=== PATIENT | female | born 1945 | race Caucasian/White ===

== ENCOUNTER 2020-04-27 14:19 | Outpatient (REF) | payer MEDICARE, SELFPAY ==
[2020-04-27 15:42] LABS: Anion Gap 13 (12-20); Blood Urea Nitrogen 9 mg/dL (9-16); Calcium 9.1 mg/dL (8.4-10.2); Carbon Dioxide 29 mmol/L (22-29); Chloride 103 mmol/L (96-108); Estimated Glomerular Filt Rate > 60; Glucose Random 92 mg/dL (60-115); Potassium 4.1 mmol/l (3.3-5.1); Sodium 141 mmol/L (135-145)
[2020-04-29 12:07] LABS: Lyme Abs Screen <0.90 index
[2020-04-30 15:38] LABS: IgA 221 mg/dL (70-320); IgG 1053 mg/dL (600-1540); IgM 38 mg/dL (50-300)
== END 2020-04-27 14:20 | disposition home or self-care (01) ==
LOC: HO.LAB 14:19
PROVIDERS: PCP Internal Medicine; Visit Provider Psychiatry & Neurology Neurology
DX: G62.9 Polyneuropathy, unspecified (principal)
CPT/HCPCS: 36415; 80048; 82784; 86334; 86618

== ENCOUNTER 2020-05-17 13:40 | Outpatient (REF) | payer MEDICARE, SELFPAY | END 2020-05-17 13:41 | disposition home or self-care (01) | LOC: HO.LAB 13:40 | PROVIDERS: PCP Internal Medicine; Visit Provider Psychiatry & Neurology Neurology | DX: Z13.89 Encounter for screening for other disorder (principal) ==

== ENCOUNTER 2020-05-24 09:49 | Outpatient (REF) | payer MEDICARE, SELFPAY ==
[2020-05-27 00:32] LABS: Arsenic, 24H Urine <10 mcg/L (<=80); Cadmium, 24H Urine <0.5 mcg/L (<=5.0); Lead, 24H Urine <10 mcg/L (<80); Mercury, 24H Urine <4 mcg/L (<=20)
== END 2020-05-24 09:50 | disposition home or self-care (01) ==
LOC: HO.LNP 09:49
PROVIDERS: Visit Provider Psychiatry & Neurology Neurology
DX: G62.9 Polyneuropathy, unspecified (principal)
CPT/HCPCS: 82175; 82300; 83655; 83825

== ENCOUNTER → 2021-03-02 13:09 | Outpatient (BNVA) | payer MEDICARE, SELFPAY | PROVIDERS: PCP Internal Medicine; Visit Provider Internal Medicine Cardiovascular Disease | DX: R00.2 Palpitations (principal); I10 Essential (primary) hypertension | CPT/HCPCS: 93005; 99212 ==

== ENCOUNTER → 2022-03-08 12:44 | Outpatient (BNVA) | payer MEDICARE, SELFPAY | PROVIDERS: PCP Internal Medicine; Visit Provider Internal Medicine Cardiovascular Disease | DX: R00.2 Palpitations (principal); I10 Essential (primary) hypertension | CPT/HCPCS: 93005; 99212 ==

== ENCOUNTER → 2022-03-20 11:00 | Outpatient (REF) | payer MEDICARE, SELFPAY ==
--- NOTE | 2022-03-20 11:04 | HM_ITS ---
Cardiac event monitor Indication: Palpitations Technique: Patient was worked up to cardiac event monitor for a total period of 28.5 days. Patient had good compliance of 95%. Procedures start date was 03/20/2022 Findings: Baseline was normal sinus rhythm with heart rate within normal range 95% of the time. Three episodes of fast heart rate noted 2 of them were incidental finding consistent with SVT at 120 beats per minute. Patient reported 1 symptom of fluttering which correlated with sinus rhythm. Patient reported 1 symptom of anxiety which correlated with 8 beat run of what appears to be SVT with aberrant conduction at 123 beats per minute Patient reported other events without any associated symptoms which correlated with normal sinus rhythm Rare isolated PACs and PVCs noted Conclusion: 1. Baseline was normal sinus rhythm 2. No significant pauses noted 3. One of the patient reported symptoms of fluttering/skipped heartbeats correlated with sinus rhythm 4. Patient reported symptoms of anxiety correlate with 8 beat run of what appears to be SVT with aberrancy at 123 beats per minute MTDD
== END ==
LOC: HO.CARD 11:00
PROVIDERS: PCP Internal Medicine; Visit Provider Internal Medicine Cardiovascular Disease
DX: R00.2 Palpitations (principal)
CPT/HCPCS: 93270

== ENCOUNTER 2022-10-30 14:09 | Outpatient (REF) | payer MEDICARE, SELFPAY | END 2022-10-30 14:10 | disposition home or self-care (01) | LOC: CF 14:09 | PROVIDERS: PCP Internal Medicine; Visit Provider Internal Medicine Cardiovascular Disease | DX: R00.2 Palpitations (principal); I10 Essential (primary) hypertension; E78.5 Hyperlipidemia, unspecified; Z79.899 Other long term (current) drug therapy | CPT/HCPCS: 36415; 80048; 84443; 85027; 99212 ==

== ENCOUNTER 2022-10-30 14:09 | Outpatient (AMB) | payer MEDICARE, SELFPAY ==
[2022-10-30 14:24] VITALS: BP 130/66; PULSE 76; O2SAT 98; BMI 20.4
--- NOTE | 2022-10-30 14:24 | MHC.OFFVIS ---
Intake Vital Signs 10/30/22 14:24 Height 5 ft 1 in Weight 108 lb BMI 20.4 BP 130/66 Blood Pressure Location Lt brachial Position Sitting Pulse 76 Pulse Source Pulse Oximeter Pulse Oximetry (%) 98 Oxygen Delivery Method Room Air Intake Visit Reasons: palpitations Intake Note: pt states she wasn't due to follow up until s/p wearing a heart monitor last March that came back normal. States irregular heartbeat has been noted more frequently and has been much more noticeable and wanted to get checked before routine appt Accompanied by: Self / Same As Patient Allergies latex [LATEX] Allergy (Unknown, Unverified 10/30/22 14:30) UNKNOWN epinephrine [EPINEPHRINE] Adverse Reaction (Mild, Unverified 10/30/22 14:30) SENSITIVTY epienphrine Allergy (Unknown, Uncoded 10/30/22 14:30) tachycardia Medication List - Last Reconciled 10/30/22 by Loi Fallon MD alendronate 35 mg PO QWEEK atenolol 50 mg PO DAILY cholecalciferol (vitamin D3) 25 mcg PO DAILY conjugated estrogens 0.625 mg vaginal DAILY gabapentin 300 mg PO BEDTIME multivitamin 1 tab PO DAILY omeprazole 20 mg PO DAILY PRN simvastatin 20 mg PO BEDTIME HPI HPI Comments History of Present Illness Details 77-year-old female here for follow-up. She had background history of hypertension and hyperlipidemia. She was seen for palpitations. She returns and is complaining that the palpitations are more frequent. She is getting symptoms once 1-2 weeks. No CP or SOB. 10/30/22: She returns for follow-up. Her previous visit she was complaining of palpitations after discussion she was referred for cardiac event monitor. She underwent cardiac event monitor in April 2022 which showed no significant arrhythmia or pauses. She was in sinus rhythm during 1 of her palpitation episode. She had 8 beat run of supraventricular tachycardia with aberrancy doing another episode no palpitations. No significant arrhythmia otherwise. She has been under stress over the 24 of October weekend and had some folks over. She is saying that she has been experiencing more palpitations in the last week. She feels her heart skips 1 beats and flutters. No chest discomfort shortness of breath. She has not been drinking more coffee or tea. She occasionally eats chocolate. He does not use any energy drinks or soda. [facility] Surgical History H/O section H/O endoscopy History of appendectomy Family History Father Colon cancer Diabetes Heart disease Mother No problems noted. Social History Alcohol intake: current Alcohol intake frequency: holidays/special occasions only Alcohol type: wine Patient Tobacco Use Status: Never used Tobacco Review of Systems Const Denies fatigue, Denies fever(s), Denies frequent falls, Denies weight gain and Denies weight loss ENT Denies dizziness Card Denies chest pain, Denies leg edema, Denies palpitations, Denies dyspnea, Denies dyspnea on exertion, Denies orthopnea and Denies other (loss of consciousness) Resp Denies cough, Denies dyspnea and Denies dyspnea on exertion GI Denies hematochezia and Denies change in stool character Musc Denies abnormal gait, Denies muscle weakness, Denies numbness, Denies radiating pain into limb and Denies tingling Neuro Denies abnormal gait, Denies dizziness, Denies frequent falls, Denies numbness and Denies tingling Endo Denies fatigue and Denies palpitations Physical Exam Vital Signs: Last Vital Signs Pulse 76 10/30/22 14:24 BP 130/66 10/30/22 14:24 Pulse Ox 98 10/30/22 14:24 Oxygen Delivery Method Room Air 10/30/22 14:24 BMI result Body Mass Index 20.4 GENERAL APPEARANCE: in no acute distress, pleasant. NECK: no carotid bruit, no jugular venous distention. SKIN: no suspicious lesions, warm and dry. HEART: no murmurs, regular rate and rhythm. LUNGS: clear to auscultation bilaterally. ABDOMEN: soft, nontender. EXTREMITIES: no edema. PERIPHERAL PULSES: equal. NEUROLOGIC: No gross deficits, AAO X 3 Assessment & Plan Assessment & Plan (1) Essential hypertension: Code(s): I10 - Essential (primary) hypertension (2) Palpitations: Code(s): R00.2 - Palpitations Plan Pleasant 77-year-old female who is here for follow-up. She has background of hypertension. Blood pressure control is good currently with atenolol 50 mg daily. She is complaining of palpitations. She previously complained of palpitations and underwent cardiac event monitor in April 2022 which did not show any significant issues. She had 1 8 beat run of SVT with aberrancy. She is returning and is complaining of significant palpitations happening over the last week. She said she was under stress which could be the underlying problem here to0. We have decided to some basic blood workup including CBC, basic metabolic panel and thyroid profile. If the blood test is normal then I will do 7 day Holter monitor as she appears quite apprehensive. Thank you for allowing me to participate in the care of your patient. Please feel free to contact me if you have any questions. Orders: Orders TSH reflex Free T4 Today R00.2 - Palpitations Complete Blood Count no Diff Today R00.2 - Palpitations Basic Metabolic Panel Today R00.2 - Palpitations Coding Level of Care Code Est Pt Level 4 (73318) Diagnoses Essential hypertension I10 Palpitations R00.2
== END 2022-10-30 15:01 | disposition home or self-care (01) ==
PROVIDERS: PCP Internal Medicine; Visit Provider Internal Medicine Cardiovascular Disease
DX: I10 Essential (primary) hypertension (principal); R00.2 Palpitations
CPT/HCPCS: 99214

== ENCOUNTER 2023-01-24 13:47 | Outpatient (AMB) | payer MEDICARE, SELFPAY ==
--- NOTE | 2023-01-24 13:55 | MHC.OFFVIS ---
Intake Vital Signs 01/24/23 13:57 Height 5 ft 1 in Weight 105 lb 13.15 oz BMI 20.0 BP 108/58 L Pulse 72 Pulse Oximetry (%) 97 Intake Visit Reasons: 2 month follow up Intake Note: 2 mo follow up for irregular heartbeat, pt states she notices less frequently. Accompanied by: Self / Same As Patient Allergies latex [LATEX] Allergy (Unknown, Unverified 01/24/23 13:59) UNKNOWN epinephrine [EPINEPHRINE] Adverse Reaction (Mild, Unverified 01/24/23 13:59) SENSITIVTY epienphrine Allergy (Unknown, Uncoded 01/24/23 13:59) tachycardia Medication List - Last Reconciled 01/24/23 by Loi Fallon MD alendronate 35 mg PO QWEEK atenolol 50 mg PO DAILY cholecalciferol (vitamin D3) 25 mcg PO DAILY conjugated estrogens 0.625 mg vaginal DAILY gabapentin 300 mg PO BEDTIME multivitamin 1 tab PO DAILY omeprazole 20 mg PO DAILY PRN simvastatin 20 mg PO BEDTIME HPI HPI Comments History of Present Illness Details 77-year-old female here for follow-up. She had background history of hypertension and hyperlipidemia. She was seen for palpitations. She returns and is complaining that the palpitations are more frequent. She is getting symptoms once 1-2 weeks. No CP or SOB. 10/30/22: She returns for follow-up. Her previous visit she was complaining of palpitations after discussion she was referred for cardiac event monitor. She underwent cardiac event monitor in April 2022 which showed no significant arrhythmia or pauses. She was in sinus rhythm during 1 of her palpitation episode. She had 8 beat run of supraventricular tachycardia with aberrancy doing another episode no palpitations. No significant arrhythmia otherwise. She has been under stress over the 24 of October weekend and had some folks over. She is saying that she has been experiencing more palpitations in the last week. She feels her heart skips 1 beats and flutters. No chest discomfort shortness of breath. She has not been drinking more coffee or tea. She occasionally eats chocolate. He does not use any energy drinks or soda. 01/24/2023: She had blood workup on last visit which was completely normal. She returns for follow-up today. She is denying any significant palpitations. She is getting rare palpitations at this point and these last only for couple of seconds. She has been more active and has not felt any exertional symptoms. Overall clinically stable. Blood pressure is good. [facility] Surgical History H/O endoscopy H/O section History of appendectomy Family History Father Colon cancer Diabetes Heart disease Mother No problems noted. Social History Alcohol intake: current Alcohol intake frequency: holidays/special occasions only Alcohol type: wine Patient Tobacco Use Status: Never used Tobacco Review of Systems Const Denies chills, Denies fatigue, Denies fever(s), Denies frequent falls, Denies weakness, Denies weight gain and Denies weight loss ENT Denies dizziness Card Denies chest pain, Denies leg edema, Denies lightheadedness, Denies palpitations, Denies dyspnea, Denies dyspnea on exertion, Denies orthopnea and Denies other (loss of consciousness) Resp Denies cough, Denies dyspnea and Denies dyspnea on exertion GI Denies hematochezia and Denies change in stool character Musc Denies abnormal gait, Denies muscle weakness, Denies numbness, Denies radiating pain into limb and Denies tingling Neuro Denies abnormal gait, Denies dizziness, Denies frequent falls, Denies numbness, Denies tingling and Denies weakness Endo Denies fatigue and Denies palpitations Physical Exam Vital Signs: Last Vital Signs Pulse 72 01/24/23 13:57 BP 108/58 L 01/24/23 13:57 Pulse Ox 97 01/24/23 13:57 BMI result Body Mass Index 20.0 GENERAL APPEARANCE: in no acute distress, pleasant. NECK: no carotid bruit, no jugular venous distention. SKIN: no suspicious lesions, warm and dry. HEART: no murmurs, regular rate and rhythm. LUNGS: clear to auscultation bilaterally. ABDOMEN: soft, nontender. EXTREMITIES: no edema. PERIPHERAL PULSES: equal. NEUROLOGIC: No gross deficits, AAO X 3 Assessment & Plan Assessment & Plan (1) Palpitations: Code(s): R00.2 - Palpitations Plan Pleasant 77-year-old female here for follow-up. She has background hypertension and palpitations. Blood pressure control is good on atenolol. She is denying significant palpitations on follow-up. Clinically stable. She will see us back in 6 months. Thank you for allowing me to participate in the care of your patient. Please feel free to contact me if you have any questions. Coding Level of Care Code Est Pt Level 3 (92507) Diagnoses Palpitations R00.2
[2023-01-24 13:57] VITALS: BP 108/58; PULSE 72; O2SAT 97
== END 2023-01-24 14:18 | disposition home or self-care (01) ==
PROVIDERS: PCP Internal Medicine; Visit Provider Internal Medicine Cardiovascular Disease
DX: R00.2 Palpitations (principal)
CPT/HCPCS: 99213

== ENCOUNTER → 2023-01-24 13:47 | Outpatient (BNVA) | payer MEDICARE, SELFPAY | PROVIDERS: PCP Internal Medicine; Visit Provider Internal Medicine Cardiovascular Disease | DX: R00.2 Palpitations (principal); I10 Essential (primary) hypertension; E78.5 Hyperlipidemia, unspecified | CPT/HCPCS: 99212 ==

== ENCOUNTER 2023-07-09 15:03 | Outpatient (AMB) | payer MEDICARE, SELFPAY ==
[2023-07-09 15:08] VITALS: BP 108/72; PULSE 81; BMI 19.9
--- NOTE | 2023-07-09 15:08 | A.OFFVIS_ITS ---
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 Allergies latex [LATEX] Allergy (Unknown, Unverified 07/09/23 15:10) UNKNOWN epinephrine [EPINEPHRINE] Adverse Reaction (Mild, Unverified 07/09/23 15:10) SENSITIVTY epienphrine Allergy (Unknown, Uncoded 07/09/23 15:10) tachycardia Medication List - Last Reconciled 07/09/23 by Tyra Dunn NP-C alendronate 35 mg PO QWEEK atenolol 50 mg PO DAILY cholecalciferol (vitamin D3) 25 mcg PO DAILY conjugated estrogens 0.625 mg vaginal DAILY gabapentin 300 mg PO BEDTIME multivitamin 1 tab PO DAILY simvastatin 20 mg PO BEDTIME HPI 6 mth fu ([facility]) HPI Details Karine is a 78-year-old female with past medical history of hypertension, hyperlipidemia, heart palpitations, brief SVT run seen on cardiac event monitor who presents for follow-up. Today she reports that she will feel very brief heart palpitations when she is at rest at times. She states it only lasts for a second or 2 and goes away. At times it will make her feel like she has to take a deep breath in. No sustained rapid heartbeats. No lightheadedness, presyncope, syncope, falls. No chest discomfort at rest or with activity, no shortness of breath, PND, orthopnea or edema. Taking meds as directed. Reports good activity tolerance. [facility] Surgical History H/O endoscopy H/O section History of appendectomy Family History Father Colon cancer Diabetes Heart disease Mother No problems noted. Social History Alcohol intake: current Alcohol intake frequency: holidays/special occasions only Alcohol type: wine Patient Tobacco Use Status: Never used Tobacco Review of Systems Const All systems reviewed & are unremarkable except as noted in HPI and below ENT Reports dizziness Card Details: brief palpitations Denies chest pain, Denies chest pain at rest, Denies chest pain with activity, Denies rapid heart rate, Denies pedal edema, Denies edema, Denies leg edema, Denies lightheadedness, Denies palpitations, Denies dyspnea, Denies dyspnea on exertion and Denies orthopnea Resp Denies cough, Denies dyspnea and Denies dyspnea on exertion GI Denies hematochezia and Denies change in stool character Musc Denies abnormal gait, Reports limited range of motion, Reports muscle cramps, Denies muscle weakness, Denies numbness, Denies radiating pain into limb, Denies stiffness and Denies tingling Neuro Denies abnormal gait, Reports dizziness, Denies numbness and Denies tingling Endo Denies palpitations Physical Exam Vital Signs: Last Vital Signs Pulse 81 07/09/23 15:08 BP 108/72 07/09/23 15:08 BMI result Body Mass Index 19.9 Const General: cooperative, healthy appearing, comfortable and no acute distress Orientation/consciousness: patient oriented x3 Neck Neck: Yes normal visual inspection and Yes no JVD Resp Effort & Inspection: normal respiratory effort Auscultation: clear to auscultation bilaterally, no crackles, no rales, no rhonchi and no wheezes Cardio Jugular venous distension: no JVD Rate: regular rate Rhythm: regular rhythm Heart sounds: S1 normal heart sound present, S2 normal heart sound present, no murmurs and no rubs Peripheral pulses: Peripheral pulses 2+ throughout Neuro General: patient oriented x3 Extrem General: Yes normal to inspection and No no pedal edema Psych Appearance: grossly normal Mental Status: mental status grossly normal Speech and movement: Normal speech and movement present Office Procedures EKG Details: Today, read by me, normal sinus rhythm, nonspecific ST and T-wave abnormality, rate 81, QTC 432 milliseconds [id number], Complete Assessment & Plan Assessment & Plan (1) Palpitations: Code(s): R00.2 - Palpitations Plan: History of heart palpitations. Last cardiac event monitor done on 03/20/2022 does show an 8 beat run of SVT, rate 123, also rare isolated PACs and PVCs, normal heart rate and rhythm 95% of the time. For her palpitations she could be feeling the extrasystoles as well as the brief SVT runs. She has been on atenolol which helps to control the symptom. She will notice only brief heart palpitations lasting 1-2 seconds. Will keep her atenolol at current dose. Blood pressure is on the low side at 108/72. In the event of sustained rapid heart palpitations reviewed vagal maneuvers. Emergency care if ever needed. Discussed ongoing reduction in caffeinated beverages. Continue with activity as tolerated. (2) SVT (supraventricular tachycardia): Code(s): I47.10 - Supraventricular tachycardia, unspecified Plan: As above (3) Essential hypertension: Code(s): I10 - Essential (primary) hypertension Plan: History of hypertension. Blood pressure currently well controlled. On atenolol 50 mg daily. Will continue without change. Continue physical activity as tolerated, Plan Time spent on chart review, documentation, interview and assessment Coding Level of Care Code Est Pt Level 3 (02199) Diagnoses Palpitations R00.2 SVT (supraventricular tachycardia) I47.10 Essential hypertension I10 CPT Codes EKG - CPT: 29906-[id number], Complete ([id number]) Time Spent (min) 24
== END 2023-07-09 15:36 | disposition home or self-care (01) ==
PROVIDERS: PCP Internal Medicine; Visit Provider Nurse Practitioner Family
DX: R00.2 Palpitations (principal); I47.10 Supraventricular tachycardia, unspecified; I10 Essential (primary) hypertension
CPT/HCPCS: 93010; 99213

== ENCOUNTER → 2023-07-09 15:03 | Outpatient (BNVA) | payer MEDICARE, SELFPAY | PROVIDERS: PCP Internal Medicine; Visit Provider Nurse Practitioner Family | DX: R00.2 Palpitations (principal); I47.10 Supraventricular tachycardia, unspecified; I10 Essential (primary) hypertension | CPT/HCPCS: 93005; 99212 ==

== ENCOUNTER 2024-01-10 14:24 | Outpatient (AMB) | payer MEDICARE, SELFPAY ==
--- NOTE | 2024-01-10 14:26 | A.OFFVIS_ITS ---
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 Allergies latex [LATEX] Allergy (Unknown, Unverified 01/10/24 14:29) UNKNOWN epinephrine [EPINEPHRINE] Adverse Reaction (Mild, Unverified 01/10/24 14:29) SENSITIVTY epienphrine Allergy (Unknown, Uncoded 01/10/24 14:29) tachycardia Medication List - Last Reconciled 01/10/24 by Tyra Dunn, SINAN-C alendronate 35 mg PO QWEEK atenolol 50 mg PO DAILY cholecalciferol (vitamin D3) 25 mcg PO DAILY conjugated estrogens 0.625 mg vaginal DAILY gabapentin 300 mg PO BEDTIME multivitamin 1 tab PO DAILY simvastatin 20 mg PO BEDTIME HPI HPI 6 month f/u: Details: Karine is a 78-year-old female with past medical history of hypertension, hyperlipidemia, heart palpitations, brief SVT run seen on cardiac event monitor who presents for follow-up. Today she reports that she will still feel very brief heart palpitations when she is at rest at times. She states it only lasts for a few seconds and goes away. It can happen more than twice in a day and then not happen again for several days. At times it will make her feel like she has to take a deep breath in. No sustained rapid heartbeats. No lightheadedness, presyncope, syncope, falls. No chest discomfort at rest or with activity, no shortness of breath, PND, orthopnea or edema. Taking meds as directed. Reports good activity tolerance. [facility] Surgical History H/O endoscopy H/O section History of appendectomy Family History Father Colon cancer Diabetes Heart disease Mother No problems noted. Social History Alcohol intake: current Alcohol intake frequency: holidays/special occasions only Alcohol type: wine Patient Tobacco Use Status: Never used Tobacco Review of Systems Const All systems reviewed & are unremarkable except as noted in HPI and below ENT Denies dizziness Card Denies chest pain, Denies chest pain at rest, Denies chest pain with activity, Reports rapid heart rate (brief), Denies pedal edema, Denies edema, Denies leg edema, Denies lightheadedness, Denies palpitations, Denies dyspnea, Denies dyspnea on exertion and Denies orthopnea Resp Denies cough, Denies dyspnea and Denies dyspnea on exertion GI Denies hematochezia and Denies change in stool character Musc Denies abnormal gait, Denies limited range of motion, Denies muscle cramps, Denies muscle weakness, Denies numbness, Denies radiating pain into limb, Denies stiffness and Denies tingling Neuro Denies abnormal gait, Denies dizziness, Denies numbness and Denies tingling Endo Denies palpitations Physical Exam Vital Signs: Last Vital Signs Pulse 76 01/10/24 14:27 BP 108/52 L 01/10/24 14:27 BMI result Body Mass Index 19.9 Const General: cooperative, healthy appearing, comfortable and no acute distress Orientation/consciousness: patient oriented x3 Neck Neck: Yes normal visual inspection and Yes no JVD Resp Effort & Inspection: normal respiratory effort Auscultation: clear to auscultation bilaterally, no crackles, no rales, no rhonchi and no wheezes Cardio Jugular venous distension: no JVD Rate: regular rate Rhythm: regular rhythm Heart sounds: S1 normal heart sound present, S2 normal heart sound present, no murmurs and no rubs Peripheral pulses: Peripheral pulses 2+ throughout Neuro General: patient oriented x3 Extrem General: Yes normal to inspection and No no pedal edema Psych Appearance: grossly normal Mental Status: mental status grossly normal Speech and movement: Normal speech and movement present Assessment & Plan Assessment & Plan (1) Palpitations: Code(s): R00.2 - Palpitations Category: Medical Plan: History of heart palpitations. Last cardiac event monitor done on 03/20/2022 does show an 8 beat run of SVT, rate 123, also rare isolated PACs and PVCs, normal heart rate and rhythm 95% of the time. For her palpitations she could be feeling the extrasystoles as well as the brief SVT runs. She has been on atenolol which helps to control the symptom. She will notice only brief heart palpitations lasting a few seconds. Blood pressure is on the low side at 10 8/52. Will keep her atenolol at current dose. In the event of sustained rapid heart palpitations reviewed vagal maneuvers. Emergency care if ever needed. Discussed ongoing avoidance of caffeinated beverages. Continue with activity as tolerated. Cardiology follow-up 6 months, sooner if needed (2) SVT (supraventricular tachycardia): Code(s): I47.10 - Supraventricular tachycardia, unspecified Category: Medical Plan: As above (3) Essential hypertension: Code(s): I10 - Essential (primary) hypertension Category: Medical Plan: History of hypertension. Blood pressure currently well controlled. On atenolol 50 mg daily. Will continue without change. Continue physical activity as tolerated, Plan Time spent on chart review, documentation, interview and assessment Coding Level of Care Code Est Pt Level 3 (60546) Diagnoses Palpitations R00.2 SVT (supraventricular tachycardia) I47.10 Essential hypertension I10 Time Spent (min) 24
[2024-01-10 14:27] VITALS: BP 108/52; PULSE 76; BMI 19.9
== END 2024-01-10 15:02 | disposition home or self-care (01) ==
PROVIDERS: PCP Internal Medicine; Visit Provider Nurse Practitioner Family
DX: R00.2 Palpitations (principal); I47.10 Supraventricular tachycardia, unspecified; I10 Essential (primary) hypertension
CPT/HCPCS: 99213

== ENCOUNTER → 2024-01-10 14:24 | Outpatient (BNVA) | payer MEDICARE, SELFPAY | PROVIDERS: PCP Internal Medicine; Visit Provider Nurse Practitioner Family | DX: R00.2 Palpitations (principal); I47.10 Supraventricular tachycardia, unspecified; I10 Essential (primary) hypertension | CPT/HCPCS: 99212 ==

== ENCOUNTER 2024-07-02 13:53 | Outpatient (AMB) | payer MEDICARE, SELFPAY ==
--- NOTE | 2024-07-02 13:58 | A.OFFVIS_ITS ---
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 Required: No Accompanied by: Self / Same As Patient Allergies latex [LATEX] Allergy (Unknown, Unverified 01/10/24 14:29) UNKNOWN epinephrine [EPINEPHRINE] Adverse Reaction (Mild, Unverified 01/10/24 14:29) SENSITIVTY epienphrine Allergy (Unknown, Uncoded 01/10/24 14:29) tachycardia Medication List - Last Reconciled 07/02/24 by Loi Fallon MD alendronate 35 mg PO QWEEK atenolol 50 mg PO DAILY cholecalciferol (vitamin D3) 25 mcg PO DAILY clobetasol 0.05% 1 appl topical DAILY conjugated estrogens 0.625 mg vaginal DAILY gabapentin 300 mg PO BEDTIME multivitamin 1 tab PO DAILY simvastatin 20 mg PO BEDTIME HPI Comments Details: 79-year-old female here for follow-up. She had background history of hypertension and hyperlipidemia. She was seen for palpitations. She returns and is complaining that the palpitations are more frequent. She is getting symptoms once 1-2 weeks. No CP or SOB. 10/30/22: She returns for follow-up. Her previous visit she was complaining of palpitations after discussion she was referred for cardiac event monitor. She underwent cardiac event monitor in April 2022 which showed no significant arrhythmia or pauses. She was in sinus rhythm during 1 of her palpitation episode. She had 8 beat run of supraventricular tachycardia with aberrancy doing another episode no palpitations. No significant arrhythmia otherwise. She has been under stress over the 24 of October weekend and had some folks over. She is saying that she has been experiencing more palpitations in the last week. She feels her heart skips 1 beats and flutters. No chest discomfort sh ortness of breath. She has not been drinking more coffee or tea. She occasionally eats chocolate. He does not use any energy drinks or soda. 01/24/2023: She had blood workup on last visit which was completely normal. She returns for follow-up today. She is denying any significant palpitations. She is getting rare palpitations at this point and these last only for couple of seconds. She has been more active and has not felt any exertional symptoms. Overall clinically stable. Blood pressure is good. 07/02/2024: Here for follow-up. Blood pressure is well controlled. Occasionally feels palpitations lasting for few seconds. No prolonged episodes. [facility] Surgical History H/O endoscopy H/O section History of appendectomy Family History Father Colon cancer Diabetes Heart disease Mother No problems noted. Social History Alcohol intake: current Alcohol intake frequency: holidays/special occasions only Alcohol type: wine Patient Tobacco Use Status: Never used Tobacco Review of Systems Const Denies chills, Denies fatigue, Denies fever(s), Denies frequent falls, Denies weakness, Denies weight gain and Denies weight loss ENT Denies dizziness Card Denies chest pain, Denies leg edema, Denies lightheadedness, Denies palpitations, Denies dyspnea and Denies dyspnea on exertion Resp Denies cough, Denies dyspnea and Denies dyspnea on exertion GI Denies hematochezia Musc Denies abnormal gait, Denies muscle weakness, Denies numbness, Denies radiating pain into limb and Denies tingling Neuro Denies abnormal gait, Denies dizziness, Denies frequent falls, Denies numbness, Denies tingling and Denies weakness Endo Denies fatigue and Denies palpitations Physical Exam Vital Signs: Last Vital Signs Pulse 77 07/02/24 14:02 BP 110/52 L 07/02/24 14:02 BMI result Body Mass Index 20.2 GENERAL APPEARANCE: in no acute distress, pleasant. NECK: no carotid bruit, no jugular venous distention. SKIN: no suspicious lesions, warm and dry. HEART: no murmurs, regular rate and rhythm. LUNGS: clear to auscultation bilaterally. ABDOMEN: soft, nontender. EXTREMITIES: no edema. PERIPHERAL PULSES: equal. NEUROLOGIC: No gross deficits, AAO X 3 Office Procedures EKG Details: Sinus rhythm beats per, normal axis, nonspecific ST-T changes QTc 420 milliseconds 76019-Caudyekpldichcinf, Complete Assessment & Plan Assessment & Plan (1) Palpitations: Code(s): R00.2 - Palpitations Category: Medical (2) Essential hypertension: Code(s): I10 - Essential (primary) hypertension Category: Medical Plan Pleasant 79 year female who is here for follow-up. Blood pressure is well controlled. She has occasional palpitations lasting for few seconds. Her cardiac event monitor has shown 1 episode of SVT with aberrancy at 123 beats per minute and she had total 8 beats run. Symptoms are very infrequent. I have advised her that she can get [employer] mobile and if she has any prolonged episode she can record at racing and sent to us. With infrequent symptoms, putting cardiac event monitor we will not be very helpful. Thank you for allowing me to participate in the care of your patient. Please feel free to contact me if you have any questions. Coding Level of Care Code Est Pt Level 4 (97702) Diagnoses Palpitations R00.2 Essential hypertension I10 CPT Codes EKG - CPT: 14601-Eqkgvakiowwweicyl, Complete ([id number])
[2024-07-02 14:02] VITALS: BP 110/52; PULSE 77; BMI 20.2
--- OUTSIDE RECORDS SUMMARY | 2024-07-02 16:28 | XMS_ITS ---
Author Organization [facility] Address [address] [place] [address] Care Team Providers Care Inspector Firearms Name Role Phone Brenda AVILEZ, Isabel Primary Care Provider Unavailab Lissett Wood [phone] REASON FOR VISIT buy Nail Yoruba Encounters Encounter Location Date Provider Diagnosis [address] [address] 06/26/2024 Lissett Thacker Plan Of Treatment Next Appt Details Provider Name:Lissett Bear Kedar , 12/25/2024 02:30:00 PM, [address] [place] [address], [phone], Progress Notes * Karine DAVIS ADOB: [birth year] (79 yo F)Acc No.[id number]:06/26/2024 Patient:?Karine DAVIS :1945???Age:79 Y???Sex:Female Address:[address] [place] [id number] * true * Date:? Generated for Printi eb/Michael/eTransmitting on:?07/02/2024 04:28 PM EDT
--- OUTSIDE RECORDS SUMMARY | 2024-07-02 16:28 | XMS_ITS | Patient Health Record ---
[facility] Address [address] [place] [address] Care Team Providers Care Marketing Liaison Name Role Phone Isabel Gutierrez MD Primary Care Provider Unavailab taz Thacker Lissett Unavailable [phone] Allergies Allergen (clinical drug ingredient) Drug/Non Drug Allergy documented on EMR Reaction Allergy Type Onset Date Status EPI (uncoded) rapid heart rate Allergy Active Adhesive redness Allergy Active Latex Latex redness Allergy Active Reason For Referral No Information Medications Medication SIG (Take, Route, Frequency, Duration) Notes Start Date End Date Status Simvastatin 20 MG Oral for 90 Days Active Atenolol 50 MG Oral for 90 Days Active Multi Vitamin Daily Active Vitamin D Active Alendronate Sodium 35 MG as directed Orally Active Clobetasol Propionate 0.05 % 1 application Externally Twice a day Active Gabapentin 100 MG 1 capsule Orally afternoon for 30 days 11/01/2023 Not-Taking Voltaren 1 % as directed Externally 02/01/2023 Active Estrace 0.1 MG/GM as directed Vaginal 12/19/2022 Active Gabapentin 300 MG TAKE 1 CAPSULE BY [facility] DAILY AT BEDTIME Oral for 90 Days Active Social History Tobacco Use: Social History Observation Description Date Details (start date - stop date) Never Smoker NA - NA Tobacco use other than smoking: Question Answer Notes Are you an other tobacco user? No Tobacco Control (Standard) Question Answer Notes Tobacco use: Nonsmoker Additional Findings: Tobacco non-user Current no nsmoker AUDIT-C (Standard) Question Answer Notes Did you have a drink containing alcohol in the p ast year? No Points 0 Interpretation Negative Problems Problem Type SNOMED Code ICD Code Onset Dates Problem Status W/U Status Risk Notes Problem Neuropathy (342787992) Neuropathy (G62.9) Active confirmed Chronic problem, Worse (4),Rx management (4) Problem Osteoarthritis of midtarsal joint of left foot (180068024813483 0) Osteoarthritis of midtarsal joint of left foot (M19.072) Active confirmed Vital Signs Heart Rate 80 /min 06/26/2024 Blood pressure diastolic 65 mm Hg 06/26/2024 Height 5 ft 1 in in 06/26/2024 Blood pressure systolic 137 mm Hg 06/26/2024 Weight 105 lbs 06/26/2024 BMI 19.84 kg/m2 06/26/2024 Procedures Procedure Date Ordered Date Performed Result Body Sit e , J0702- INJECT or DRAI N, JOINT/BURSA 07/12/2023 N/A Encounters Encounter Location Date Provider Diagnosis [address] [address] 07/12/2023 Lissett Black Pain in left foot M79.672 ; Osteoarthritis of midtarsal joint of left foot M19.072 ; Pain in left ankle and joints of left foot M25.572 and Bursitis of left foot M77.[address] [address] 11/01/2023 Lissett Black Osteoarthritis of midtarsal joint of left foot M19.072 ; Neuropathy G62.9 ; Pain in left foot M79.672 ; Pain in left ankle and joints of left foot M25.572 ; Bursitis of left foot M77.52 and Neuritis M79.[address] [address] 12/13/2023 Lissett Black Osteoarthritis of midtarsal joint of left foot M19.072 ; Neuropathy G62.9 ; Pain in left foot M79.672 ; Pain in left ankle and joints of left foot M25.572 ; Bursitis of left foot M77.52 and Neuritis M79.[address] [address] 02/27/2024 Lissett Black Osteoarthritis of midtarsal joint of left foot M19.072 ; Neuropathy G62.9 ; Pain in left foot M79.672 ; Pain in left ankle and joints of left foot M25.572 ; Bursitis of left foot M77.52 and Neuritis M79.2 [facility] [address] [address] 06/26/2024 Lissett Thacker Osteoarthritis of midtarsal joint of left foot M19.072 ; Neuropathy G62.9 ; Pain in left foot M79.672 ; Pain in left ankle and joints of left foot M25.572 ; Bursitis of left foot M77.52 and Neuritis M79.[address] [facility] [address] 06/26/2024 Lissett Thacker Assessments Encounter Date Diagnosis (ICD Code) Assessment Notes Treatment Notes Treatment Clinical Notes Section Notes 07/12/2023 Pain in left foot (ICD-10 - M79.672) 11/01/2023 Neuropathy (ICD-10 - G62.9) Chronic problem, Worse (4),Rx management (4) 11/01/2023 Osteoarthritis of midtarsal joint of left foot (ICD-10 - M19.072) 12/13/2023 Neuropathy (ICD-10 - G62.9) 12/13/2023 Osteoarthritis of midtarsal joint of left foot (ICD-10 - M19.072) 02/27/2024 Osteoarthritis of midtarsal joint of left foot (ICD-10 - M19.072) 06/26/2024 Neuropathy (ICD-10 - G62.9) 06/26/2024 Osteoarthritis of midtarsal joint of left foot (ICD-10 - M19.072) 06/26/2024 Pain in left foot (ICD-10 - M79.672) 02/27/2024 Neuropathy (ICD-10 - G62.9) 12/13/2023 Pain in left foot (ICD-10 - M79.672) 11/01/2023 Pain in left foot (ICD-10 - M79.672) 07/12/2023 Osteoarthritis of midtarsal joint of left foot (ICD-10 - M19.072) 07/12/2023 Pain in left ankle and joints of left foot (ICD-10 - M25.572) 11/01/2023 Pain in left ankle and joints of left foot (ICD-10 - M25.572) 12/13/2023 Pain in left ankle and joints of left foot (ICD-10 - M25.572) 02/27/2024 Pain in left foot (ICD-10 - M79.672) 06/26/2024 Pain in left ankle and joints of left foot (ICD-10 - M25.572) 02/27/2024 Pain in left ankle and joints of left foot (ICD-10 - M25.572) 12/13/2023 Bursitis of left foot (ICD-10 - M77.52) 07/12/2023 Bursitis of left foot (ICD-10 - M77.52) 11/01/2023 Bursitis of left foot (ICD-10 - M77.52) 06/26/2024 Bursitis of left foot (ICD-10 - M77.52) 11/01/2023 Neuritis (ICD-10 - M79.2) 300mg at bedtime and 100mg afternoon 12/13/2023 Neuritis (ICD-10 - M79.2) 06/26/2024 Neuritis (ICD-10 - M79.2) 02/27/2024 Bursitis of left foot (ICD-10 - M77.52) 02/27/2024 Neuritis (ICD-10 - M79.2) Plan Of Treatment Pending Test Test Name Order Date , J0702- INJECT or DRAIN, JOINT/BUR SA 07/12/2023 Next Appt Details Provider Name:Lissett Thacker , 12/25/2024 02:30:00 PM, [address] [place], [address], Insurance Providers Payer Name Payer Address Payer Phone Subscriber Number Group Number Insured Name Patient Relationship to Insured Coverage Start Date Coverage End Date [employer] [address] [place] [address] [id number] Karine Davis Self - patient is the insured Medical (General) History Medical History History ICD Code CAD (Cholesterol) Diverticulosis Headaches/Migraines Hiatal hernia High blood pressure Numbness Reflux ( GERD) Measles Mumps Chicken pox Peripheral neuropathy Surgical History Surgery Date(Month/Year) 1982 appendectomy 2014
--- OUTSIDE RECORDS SUMMARY | 2024-07-02 16:28 | XMS_ITS ---
[facility] zee Flores Address [address] [place] [address] Care Team Providers Care Product Blending Supervisor Name Role Phone Brenda AVILEZ, Isabel Primary Care Provider UnavailLissett Razo Unavailable [phone] Allergies Allergen (clinical drug ingredient) Drug/Non Drug Allergy documented on EMR Reaction Allergy Type Onset Date Status EPI (uncoded) rapid heart rate Allergy Active Adhesive redness Allergy Active Latex Latex redness Allergy Active REASON FOR VISIT Pcp-11/13, Foot pain Medications Medication SIG (Take, Route, Frequency, Duration) Notes Start Date End Date Status Simvastatin 20 MG Oral for 90 Days Active Atenolol 50 MG Oral for 90 Days Active Multi Vitamin Daily Active Estrace 0.1 MG/GM as directed Vaginal 12/19/2022 Active Gabapentin 300 MG TAKE 1 CAPSULE BY [facility] DAILY AT BEDTIME Oral for 90 Days Active Vitamin D Active Alendronate Sodium 35 MG as directed Orally Active Clobetasol Propionate 0.05 % 1 application Externally Twice a day Active Gabapentin 100 MG 1 capsule Orally afternoon for 30 days 11/01/2023 Not-Taking Voltaren 1 % as directed Externally 02/01/2023 Active Social History Tobacco Use: Social History [...] ast year? No Points 0 Interpretation Negative Vital Signs Height 5 ft 1 in in 06/26/2024 Weight 105 lbs 06/26/2024 BMI 19.84 kg/m2 06/26/2024 Blood pressure systolic 137 mm Hg 06/27/19 25 Blood pressure diastolic 65 mm Hg 025 Heart Rate 80 /min 06/26/2024 Encounters Encounter Location Date Provider Diagnosis [facility] [address] [place] [address] 06/26/2024 Lissett Thacker Osteoarthritis of midtarsal joint of left foot M19.072 ; Neuropathy G62.9 ; Pain in left foot M79.672 ; Pain in left ankle and joints of left foot M25.572 ; Bursitis of left foot M77.52 and Neuritis M79.2 Assessments Encounter Date Diagnosis (ICD Code) Assessment Notes Treatment Notes Treatment Clinical Notes Section Notes 06/26/2024 Osteoarthritis of midtarsal joint of left foot (ICD-10 - M19.072) 06/26/2024 Neuropathy (ICD-10 - G62.9) 06/26/2024 Pain in left foot (ICD-10 - M79.672) 06/26/2024 Pain in left ankle and joints of left foot (ICD-10 - M25.572) 06/26/2024 Bursitis of left foot (ICD-10 - M77.52) 06/26/2024 Neuritis (ICD-10 - M79.2) Plan Of Treatment Next Appt Details Follow Up: prn, Reason: Provider Name:Lissett Chema Thacker , 12/25/2024 02:30:00 PM, [address] [place], [address], Progress Notes * Karine DAVIS ADOB: [birth year] (79 yo F)Acc No.[id number]:06/26/2024 Progress Note Patient:?Karine DAVIS Provider:?Lissett Thacker DPM :1945???Age:79 Y???Sex:Female D ate:06/26/2024 Address:[address] [place], [place] [id number] Pcp:Isabel Gutierrez MD Subjective: * Chief Complaints: * ???Pcp-11/13Foot pain * HPI: ???Foot Pain:?Nature:?aching, stiffness, , burning , shooting.?Location:?Top, Midfoot, LEFT.?Duration:?several months > 6.?Onset:?gradual.?Course:?, , intermittent, improved, at 80 %.?Aggravated:?walking , any pressure.?Treatments:?rest , innersoles,voltaren gel(occasional)oral gabapentin 300mg at bedtime,inserts and sneakers ,?.? * ROS:?General/Constitutional:?Nausea?denies.?Vomiting?denies.?Hunger Thirst?denies.?Loss appetite?denies.?Chills?denies.?Fatigue?denies.?Fever?denies.?Night Sweats?denies.?Unexplained weight loss?denies.?Unexplained weight gain?denies.?HEENTM:?Dentures?denies.?Dizziness?denies.?Glasses/contacts?admits.?Retinopathy?de nies.?Blurred/double vision?denies.?TMJ?denies.?Discharge/drainage?denies.?Implants?denies.?Sore throat?denies.?Dental implants?denies.?Hard of hearing ?denies.?Difficulty chewing/swallowing/speaking?denies.?Nose bleeds?denies.?Sore mouth?denies.?Respiratory:?On Oxygen?denies.?Pneumonia/pleurisy?denies.?Bronchitis?denies.?Emphysema?denies.?C oughing?denies.?Cough blood?denies.?Shortness of breath?denies.?Wheezing?denies.?Cardiovascular:?Pacemaker?denies.?MVP?denies.?WPW?denies.?CHF?denies.?Heart attack?denies.?Septal defect?denies.?Rapid beat?denies.?Chest pain ?denies.?Atrial Fib.?denies.?Murmur/Palpitations?admits.?Gastrointestinal:?Hemorrhoids?denies.?Stomach/Abdominal pain?denies.?Dark blood stool?denies.?Irritable bowel ?admits.?Constipation?denies.?Diarrhea?denies.?Hematology:?Swelling?denies.?Clots?denies.?Varicose Veins?denies.?Bruising?denies.?Bleeding problem?denies.?Genitourinary:?Blood urine?denies.?Frequent/Painfu/urination/bladder control?denies.?Kidney stones?denies.?Infection (UTI)?denies.?Nephropathy?denies.?sex trans dis (STD)?denies.?Prostate?denies.?Musculoskeletal:?Hammertoes?denies.?Bunions?denies.?Back Pain?denies.?Muscle Cramps/ Resting?denies.?Muscle cramps / walking?denies.?Generalized aches and pains?admits.?Weakness?denies.?Integ.:?Hernandez?denies.?Scars?denies.?Corns/calluses?denies.?Ingrown nails?admits.?Painful nails?admits.?Open Sores?denies.?Rashes?denies.?Neurologic:?Difficulty sleeping?denies.?Brain disorder?denies.?Numbness?admits.?Balance trouble?denies.?Confusion?denies.?Fainting/blackouts?denies.?Tingling?admits.?Tr emors?denies.? * Medical History:? * Surgical History:? 1983appendectomy 2014 * Hospitalization/Major Diagno stic Procedure:?Denies Past Hospitalization * Family History:?Mother: dece ased, stroke.?Father: , diabetes.? * Social History:?Tobacco Use:?Tobacco use other than smoking?Are you an other tobacco user??No ?Tobacco Control (Standard)?Tobacco use:?Nonsmoker ?Additional Findings: Tobacco non-user?Current nonsmoker ???Drugs/Alcohol:?Drugs?Have you used drugs other than those for medical reasons in the past 12 months??No ???Miscellaneous:?Caffeine: no. ?Children: yes, 1. ?Exercise: yes, walking. ?Marital status: . ?Occupation: Retired- [employer]. ???Drug/Alcohol:?AUDIT-C (Standard)?Did you have a drink containing alcohol in the past year??No ?Points?0 ?Interpretation?Negative * Medications:?TakingClobetaso l Propionate 0.05 % Ointment 1 application Externally Twice a day Alendronate Sodium 35 MG Tablet as directed Orally Vitamin D Multi Vitamin Daily Atenolol 50 MG Tablet Oral Simvastatin 20 MG Tablet Oral Gabapentin 300 MG Capsule TAKE 1 CAPSULE BY MOUTH DAILY AT BEDTIME Oral Estrace 0.1 MG/GM Cream as directed Vaginal Voltaren 1 % Gel as directed Externally Taking Clobetasol Propionate 0.05 % Ointment 1 application Externally Twice a day Taking Alendronate Sodium 35 MG Tablet as directed Orally Taking Vitamin D Taking Multi Vitamin Daily Taking Atenolol 50 MG Tablet Oral Taking Simvastatin 20 MG Tablet Oral Taking Gabapentin 300 MG Capsule TAKE 1 CAPSULE BY MOUTH DAILY AT BEDTIME Oral Taking Estrace 0.1 MG/GM Cream as directed Vaginal Taking Voltaren 1 % Gel as directed Externally Not-Taking/PRNGabapentin 100 MG Capsule 1 capsule Orally afternoon Medication List reviewed and reconciled with the patientNot-Taking/PRN Gabapentin 100 MG Capsule 1 capsule Orally afternoon Medication List reviewed and reconciled with the patient * Allergies:?Adhesive: redness Latex: rednessEPI: rapid heart rateyes[Allergies Verified] Objective: * Vitals:?Ht: 5 ft 1 in, Wt: 1 05, BMI: 19.84, Shoe size: 6.5-7, BP: 137/65 mm Hg, HR: 80 /min, Ht-cm: 154.94 cm, Wt-k.63 kg. * Examination: ???General Examination: ?GENERAL APPEARANCE:?Reveals a pleasant, alert, well nourished, well- developed, well hydrated individual, who demonstrates proper attention to hygiene/body habitus, and is in no acute distress, Pt serves as own historian for office visit today.?ORIENTED:?person, place, and time.?Neurological: ?SENSORY:?Neurological exam demonstrates reduced sharp/dull pin prick discrimination, reduced vibration sensation, , Pt relates , shooting/radiating sensation , Midfoot , Left.?Vascular: ?DP PULSES (B):?3/4, B/L.?PT PULSES (B):?3/4, B/L ,.?CAPILLARY FILL TIME:?immediate, all digits, B/L.?TROPHIC CONDITION-TEXTURE/ELASTICITY/TURGOR/HAIR GROWTH (B):?normal, B/L.?TEMPERTURE GRADIENT (C):?normal, warm to cool, proximal to distal, B/L, B/L.?PIGMENTATION:?normal, B/L.?Orthopedic: ?MUSCLE STRENGTH:?5/5 all groups in a symmetrical fashion, B/L.?GAIT ABNORMALITY:?Pronated , abducted angle and base of gate , B/L.?FOOT MORPHOLOGY:? Prominent, painful 1st Met-Cuneiform joint without inflammation, LEFT, , approximately 80 percent LESS.? Assessment: * Assessment: 1.?Neuropathy - G62.9???2.?O steoarthritis of midtarsal joint of left foot - M19.072 (Primary)???Specify :Response to treatment - Improvement???3.?Pain in left foot - M79.672???4.?Pain in left ankle and joints of left foot - M25.572???5.?Bursitis of left foot - M77.52???6.?Neuritis - M79.2??? Plan: * Treatment: * Procedure Codes:? * Preventive Medicine:? ??Counseling:?Discussion:?-12: Office or other outpatient visit for the evaluation and management of an established patient, which required a medically appropriate history and/or examination and STRAIGHTFORWARD level of MEDICAL DECISION MAKING, 1 SELF-LIMITED OR MINOR PROBLEM, MINIMAL- NO AMOUNT/COMPLEXITY OF DATA TO BE REVIEWED/ANALYZED, AND MINIMAL RISK OF COMPLICATION/MORBIDITY. The visit on the day of the encounter encompassed interpreting the data and educating the patient as to the nature of their condition, treatment options available according to their individual PMH, meds, allergies, and overall health/living conditions, as well as any potential risks or complications that may occur from a failure to adhere to, and participate in, the recommended course of therapy. The discussion included a complete verbal, and/or written explanation of the examination results, any x-rays taken, the proposed diagnosis, and outline of the treatment plan. A schedule for future care needs was also explained. The patient verbalized an understanding of the instructions at this time and agreed to be an active participant in their treatment. If the patient should think of any questions or concerns after the visit, I have encouraged the patient to call the office.?F/u Visit:?Given recent successful results to treatment, The patient wishes to continue with the present treatment plan for their condition, Patients podiatric issue has improved, they should call the office with any future issues or concerns.? * Follow Up:?prn * Images: * Sign off status: Completed true * Provider:?Lissett Thacker DPM Date:?2024 Generated for Shaina parson/Michael/Colleen on:?07/02/2024 04:27 PM EDT History and Physical Notes * HPI (History of Present Illness) Category Sub-Category Detail Notes Category Not es Foot Pain Nature: aching, stiffness, , burning , shooting Location: Top, Midfoot, LEFT Duration: several months > 6 Onset: gradual Course: , , intermittent, im proved, at 80 % Aggravated: walking , any pressu re Treatments: rest , innersoles,vo ltaren gel(occasional)oral gabapentin 300mg at bedtime,inserts and sneakers , Examination Category Sub-Category Detail Notes Category Not es Neurological SENSORY: Neurological exa m demonstrates reduced sharp/dull pin prick discrimination, reduced vibration sensation, , Pt relates , shooting/radiating sensation , Midfoot , Left Orthopedic GAIT ABNORMALITY: Pronated , abd ucted angle and base of gate , B/L FOOT MORPHOLOGY: Prominent, painful 1 st Met-Cuneiform joint without inflammation, LEFT, , approximately 80 percent LESS MUSCLE STRENGTH: 5/5 all groups in a symmetrical fashion, B/L General Examination GENERAL APPEARANCE: Reveals a pleasant, alert, well nourished, well-developed, well hydrated individual, who demonstrates proper attention to hygiene/body habitus, and is in no acute distress, Pt serves as own historian for office visit today ORIENTED: person, place, and t elizabeth Vascular DP PULSES (B): 3/4, B/L PT PULSES (B): 3/4, B/L , CAPILLARY FILL TIME: immediate, all digi ts, B/L TEMPERTURE GRADIENT (C): normal, warm to cool, proximal to distal, B/L, B/L TROPHIC CONDITION-TEXTURE/ELASTICITY/TURGOR/HAIR GROWTH (B): normal, B/L PIGMENTATION: normal, B/L
--- OUTSIDE RECORDS SUMMARY | 2024-07-02 16:28 | XMS_ITS ---
Author Organization [facility] Address [address] [place] [address] Care Team Providers Care Product Owner Name Role Phone Brenda AVILEZ, Isabel Primary Care Provider Unavailab Lissett Wood [phone] REASON FOR VISIT seen sooner Encounters Encounter Location Date Provider Diagnosis [address] [address] 03/05/2024 Lissett Thacker Plan Of Treatment Next Appt Details Provider Name:Lissett Thacker , 12/25/2024 02:30:00 PM, [address] [facility], [place], [address], Progress Notes * RYANAlma DeliaKarine ADOB: [birth year] (79 yo F)Acc No.[id number]:03/05/2024 Progress Note Patient:?Karine DAVIS Provider:?Lissett Thacker DPM :1945???Age:79 Y???Sex:Female D ate:03/05/2024 Address:[address] [place], [place] [id number] Pcp:Isabel Gutierrez MD Subjective: * Chief Complaints: * ???1. Seen sooner. * Medical History:? Objective: * Vitals:? Assessment: Plan: * Treatment: * Images: * The named appointment provid er may or may not be the originator of this progress note, and it is not deemed complete until electronically signed by the appointment provider. Sign off status: Pending * Provider:?Lissett Thacker DPM Date:?2023 Generated for Shaina parson/Michael/Colleen on:?07/02/2024 04:28 PM EDT
== END 2024-07-02 14:32 | disposition home or self-care (01) ==
LOC: HO.HCS 13:54
PROVIDERS: PCP Internal Medicine; Visit Provider Internal Medicine Cardiovascular Disease
DX: R00.2 Palpitations (principal); I10 Essential (primary) hypertension
CPT/HCPCS: 93010; 99214

== ENCOUNTER → 2024-07-02 13:53 | Outpatient (BNVA) | payer MEDICARE, SELFPAY | PROVIDERS: PCP Internal Medicine; Visit Provider Internal Medicine Cardiovascular Disease | DX: R00.2 Palpitations (principal); I10 Essential (primary) hypertension; R94.31 Abnormal electrocardiogram [ECG] [EKG] | CPT/HCPCS: 93005; 99212 ==